=== PATIENT | female | born 1970 | race Caucasian/White ===

== ENCOUNTER 2018-07-11 23:57 | Emergency (ER) | payer OTHER ==
[~2018-07-11] VITALS: Ht 152.4 cm; Wt 54.0 kg
[2018-07-12 00:10] VITALS: Ht 152.4 cm; Wt 54.0 kg
[2018-07-12] MEDS ORDERED: PROCHLORPERAZINE 10 MG INJ IV STA (02:53)
[2018-07-12] MEDS ORDERED: SOD CHLORIDE 0.9% 1,000 ML IV STA (02:53)
[2018-07-12] MEDS ORDERED: KETOROLAC 30 MG INJ IV STA (02:53)
[2018-07-12] MEDS ORDERED: ONDANSETRON 4 MG INJ IV STA (02:53)
[2018-07-12] MEDS ORDERED: IBUP-1542 PO (04:02)
[2018-07-12] MEDS ORDERED: ONDA4TAB14 PO (04:04)
--- NOTE | 2018-07-12 04:09 | ERD ---
ER Documentation Chief Complaint Chief Complaint PARKER & vomiting,denies abd pain,worsens with bright light HPI This is a 48-year-old female with history of migraine headaches presents to the ED complaining of exacerbation of her headache. Patient states symptoms started again 2 days ago. Denies any known precipitating factors. She states headache is diffuse, pounding in nature and similar to her previous migraine headaches. She has been taking ibuprofen without any relief. She reports associated photophobia, nausea and 3 episodes of nonbilious, nonbloody emesis. No fevers or chills. No head trauma. No numbness, tingling or focal weakness of her upper or lower extremities. No other complaints. ROS All systems reviewed and are negative except as per history of present illness. Medications Home Meds Active Scripts Ondansetron (Ondansetron Odt) 4 Mg Tab.rapdis, 4 MG PO Q6H PRN for NAUSEA AND/OR VOMITING, #10 TAB Prov:DISHIGRIKIAN,ZEPYUR N PA-C 07/12/18 Ibuprofen* (Motrin*) 600 Mg Tab, 600 MG PO Q6H PRN for PAIN AND OR ELEVATED TEMP, #30 TAB Prov:DISHIGRIKIAN,ZEPYUR N PA-C 07/12/18 Allergies Allergies: Coded Allergies: No Known Allergy (Unverified , 07/12/18) PMhx/Soc History of Surgery: Yes (Hysterectomy) Anesthesia Reaction: No Hx Neurological Disorder: No Hx Respiratory Disorders: No Hx Cardiac Disorders: No Hx Psychiatric Problems: No Hx Miscellaneous Medical Probl: Yes (Uterine Cancer) Hx Alcohol Use: No Hx Substance Use: No Hx Tobacco Use: No Smoking Status: Never smoker Physical Exam Vitals Vital Signs Date Temp Pulse Resp B/P (MAP) Pulse Ox O2 O2 Flow FiO2 Time Delivery Rate 07/12/18 98.7 66 18 147/91 99 00:10 (109) Physical Exam Const: No acute distress. + Eyes closed. In moderate distress secondary to pain. Head: Atraumatic Eyes: Normal Conjunctiva ENT: Normal External Ears, Nose and Mouth. Neck: Full range of motion. No meningismus. Resp: Clear to auscultation bilaterally Cardio: Regular rate and rhythm, no murmurs Ext: No cyanosis, or edema Neuro: M/S: Alert and oriented Face: EOMI, face and pharynx with normal sensation and function Motor: Normal strength throughout Sensation: Normal sensation throughout Speech: Normal Cerebel: Normal coordination Normal gait Psych: Normal Mood and Affect Results 24 hrs Current Medications Medications Dose Sig/Xiao Start Time Status Last (Trade) Ordered Route PRN Stop Time Admin Dose Reason Admin Sodium 1,000 ml @ Q1H STAT 07/12/18 DC 07/12/18 Chloride 1,000 mls/hr IV 02:53 03:12 07/12/18 03:52 10 mg ONCE STAT 07/12/18 DC 07/12/18 Prochlorperaz IV 02:53 03:28 ine 07/12/18 02:55 (Compazine Inj) Ondansetron 4 mg ONCE STAT 07/12/18 DC 07/12/18 HCl (Zofran IV 02:53 03:12 Inj) 07/12/18 02:55 Ketorolac 15 mg ONCE STAT 07/12/18 DC 07/12/18 Tromethamine IV 02:53 03:12 (Toradol) 07/12/18 02:55 Procedures/MDM ED COURSE: The patient was given 1 L of IV fluids, Zofran, Compazine, Toradol The medication was well tolerated and the patient had market improvement in symptoms. The patient remained stable throughout ED course. MEDICAL DECISION MAKIN-year-old female with history of migraine headaches presents with a diffuse pounding headache. History and physical most consistent with primary headache. Vital signs are stable. No focal neurological deficits on physical exam. Clinical presentation not consistent with subarachnoid hemorrhage, epidural or subdural hematoma, IC mass, CVA, encephalitis or meningitis. Symptoms improved status post 1 L of IV fluids, Toradol, Zofran, Compazine. Patient was discharged home with close follow up and mangement by PCP in 48 hours. Strict return precautions discussed. PRESCRIPTIONS: Ibuprofen, Zofran SPECIALIST FOLLOW UP RECOMMENDED: None Patient has been advised to follow up with primary care in 1-2 days. Departure Diagnosis: Primary Impression: Headache Headache type: other headache syndrome Qualified Codes: G44.89 - Other headache syndrome Condition: Stable Patient Instructions: Self-Care for Headaches Referrals: KATERINA DALE MD (PCP) Additional Instructions: Paciente aconseja volver a Departamento de urgencias inmediatamente para sntomas nuevos o que empeoran . Paciente aconseja posteriores con el PCP en 1-2 galvan. Si el paciente no tiene ninguna de atencin primaria pueden seguir con [facility] [address] [place] [address] o [facility] + [address] [address] SHANTI VICTORIA PA-C July 12, 2018 04:09
[2018-07-12 04:28] VITALS: BP 142/85; PULSE 64; RESP 16
== END 2018-07-12 04:28 | disposition home or self-care (01) ==
LOC: FTE 23:57
DX: G44.89 Other headache syndrome (principal); Z85.42 Personal history of malignant neoplasm of other parts of uterus
CPT/HCPCS: 96374; 96375; J0780; J1885; J2405; J7030; Z7502